=== PATIENT | female | born 1965 | race Caucasian/White ===

== ENCOUNTER 2018-06-28 14:04 | Inpatient (IN) | payer MEDICAID ==
[~2018-06-28] VITALS: Ht 170.2 cm; Wt 97.1 kg
--- NOTE | ~2018-06-28 | CON ---
[address] [address] CONSULTATION Name: MARKO MCFADDEN Room: [address] ADM IN M.R.#: [id number] Admission: 06/28/18 Attend Phys: Arie Martinez MD Discharge: Date of : 67 Report #: [id number] THIS REPORT FOR: //name// CC: Arie MCGHEE Physician staff DATE OF SERVICE: 06/29/2018 REASON FOR CONSULTATION: Pericardial effusion post-NM. PRIMARY CARE PHYSICIAN: At [facility], Michelle Mcghee, nurse practitioner. CHIEF COMPLAINT: Chest pain. HISTORY OF PRESENT ILLNESS: The patient is a 52-year-old female, who had an NM at roughly one month ago after having elective C-spine and L-spine surgery at a hospital in [place], [place]. She was at a smaller hospital apparently without PCI capability and was transferred to [facility] for her percutaneous coronary intervention. We are currently without records, but they will be requested. She presented to this hospital because she lives in the [place] area and develops continued chest pain, which she said never really went away after her surgery, but it was told that this is probably a normal response to her NM. She was evaluated with a CT scan of the chest to rule out pulmonary embolus and was found to have a pericardial effusion, described as moderate. She denies dizziness, lightheadedness and she had been hemodynamically stable with systolic pressures in the one-teens in a sinus rhythm on telemetry overnight. Her chest pain is sharp, nonradiating. It is left-sided. She did take 1 nitro without significant improvement of her symptoms. Her cardiac troponin level here is normal x 5 sets at 0.06. Her CRP is elevated at 222. Her chest x-ray shows cardiomegaly. Since her discharge, she has been weak, fatigued and having the aforementioned chest discomfort. PAST MEDICAL HISTORY: She is not a diabetic, but she does have a history of hyperlipidemia, hypertension, but really had not been on any significant medications prior to her elective surgeries. ALLERGIES: SHE HAS ALLERGIES TO ASPIRIN. SHE BREAKS OUT A RASH, [place] [address] CONSULTATION Name: MARKO MCFADDEN Room: [address] IN [facility].#: [id number] Admission: 06/28/18 Attend Phys: Arie Martinez MD Discharge: Date of : 67 Report #: [id number] HER STOMACH APPARENTLY. CURRENT MEDICATIONS: Include Plavix 75 mg daily, Lasix 40 mg daily, atorvastatin 80 mg daily, loratadine, oxycodone, zolpidem, Toprol-XL 25 mg daily, Aldactone 25 mg daily, Zanaflex, Protonix 40 mg daily and citalopram and nitroglycerin. PAST SURGICAL HISTORY: Includes neck surgery with plate and screws in 2010 and then redo surgery as above last month. She has also had knee surgeries. SOCIAL HISTORY: She was a smoker before her NM, had been done so for several years. FAMILY HISTORY: Positive for heart disease. Father of complications of an NM, but he also had other numerous medical problems following an accident from quadriplegia. REVIEW OF SYSTEMS: GASTROINTESTINAL: No complaints of nausea or vomiting. LOWER EXTREMITY: She is complaining of cramping and she did have a small hematoma at the site of her percutaneous coronary intervention. She denies any bleeding or swelling with erythema. NEUROLOGIC: Denies headaches, blurry vision, slurred speech. HEMATOLOGIC: No anemia or bleeding disorders. RENAL: No history of kidney failure. SKIN: No rashes. CARDIOVASCULAR: Positive shortness of breath, positive dyspnea on exertion, positive chest discomfort. PHYSICAL EXAMINATION: VITAL SIGNS: She is in a sinus rhythm. Blood pressure is 122/77, pulse is 98. GENERAL: This is a middle-aged woman. She is alert, no apparent distress. EYES: EOMs intact. No facial asymmetry. NECK: Supple. No jugular venous distention. CARDIOVASCULAR: Regular. I could not hear a murmur or S3. There is no rub. LUNGS: Diminished breath sounds. ABDOMEN: Soft, nontender, nondistended. EXTREMITIES: There is no peripheral edema. NEUROLOGIC: There are no focal deficits. LABORATORY DATA: Electrocardiogram shows sinus rhythm with Q waves across the anterior precordium with subtle ST elevation in V1 and V2. Hemoglobin is 10.9, white blood count is 12.7, platelet count is 684,000. INR is 1. Sodium is 133, potassium 3.8, chloride is 96, BUN is 21, creatinine is 1.3, glucose is 125. IMPRESSION: [facility] [address] [place] [address] CONSULTATION Name: MARKO MCFADDEN Room: [address] IN M.R.#: [id number] Admission: 06/28/18 Attend Phys: Arie Martinez MD Discharge: Date of : 67 Report #: [id number] 1. Ischemic cardiomyopathy. She has on my limited evaluation of her bedside echocardiogram as awyjtadl-xg-coxyap LV dysfunction with ejection fraction in the 30-35% range. There is akinesis of her apex with presence of a felun-tg-heptqjsp size apical thrombus. This was utilized with Optison contrast imaging. 2. Status post myocardial infarction. She is currently on aspirin and Plavix and I need to get records from [place] to see if she was placed a drug-eluting stent. She might have had stent thrombosis, so there is some concern that she may have had a recurrent event since her discharge from the hospital as she has had continued chest pain. We may need to survey her coronary arteries with another diagnostic cardiac catheterization and consider more aggressive antiplatelet therapy. We will check to see what kind of stent was placed and if it was a drug-eluting stent, this is a distinct possibility with her being a smoker. She may have some Plavix resistance. 3. Pericardial effusion. On limited evaluation, this appears only to be small and not responsible for her symptoms. 4. Chest pain. This could be related to ongoing angina versus a postinflammatory, post-NM inflammatory process. We will place her on anti-inflammatories and continue with aggressive antiplatelet therapy. 5. Elevated blood sugar. She may be a diabetic. I would consider treating this. 6. Hyperlipidemia. Continue with aggressive medical therapy with her atorvastatin. She is currently dosed at 80 mg daily. 7. Tobacco abuse. Cessation is recommended. 8. Right groin pain. We will check her leg with a lower extremity Doppler to make sure she does not have a vascular injury. By: [id number] Marks MD, FACC /nt
[~2018-06-28 14:04] MED LIST: CARISOPRODOL 3350 MG; DITROPAN XL5 M1; NEOMYCIN/BACIT3.5 G1; ZANTAC 150MG T150 M1; ZANTAC 150MG T150 MG PO
[2018-06-28 14:09] VITALS: BP 105/84
[2018-06-28] MEDS ORDERED: CLARITIN10 MG PO (14:18)
[2018-06-28] MEDS ORDERED: LASIX 40 MG TAB40 M2 PO (14:18)
[2018-06-28] MEDS ORDERED: LIPITOR80 MG PO (14:18)
[2018-06-28] MEDS ORDERED: CLOPIDOGREL75 MG PO (14:18)
[2018-06-28] MEDS ORDERED: OXYCODON-ACETA1 EAC1 PO (14:19)
[2018-06-28] MEDS ORDERED: AMBIEN 5 MG TABL5 M1 PO (14:19)
[2018-06-28] MEDS ORDERED: LOPRESSOR25 PO (14:19)
[2018-06-28] MEDS ORDERED: ZANAFLEX4 MG PO (14:20)
[2018-06-28] MEDS ORDERED: SPIRONOLACTONE25 M1 PO (14:20)
[2018-06-28] MEDS ORDERED: PROTONIX40 M2 PO (14:20)
[2018-06-28] MEDS ORDERED: CELEXA20 MG PO (14:21)
[2018-06-28] MEDS ORDERED: NITROGLYCERIN0.4 MG SUBLING (14:23)
[2018-06-28 14:34] LABS: ABSOLUTE EOSINOPHILS 0.1 thou/uL (0.0-0.7); ABSOLUTE LYMPHOCYTES 1.9 thou/uL (0.8-5.3); ABSOLUTE MONOCYTES 1.1 thou/uL (0.0-1.2); ABSOLUTE NEUTROPHILS 13.5 thou/uL (1.6-8.1); EOSINOPHILS 0.7 %; HEMATOCRIT 37.7 % (37.0-47.0); HEMOGLOBIN 12.6 gm/dL (12.0-15.0); LYMPHOCYTES 11.5 %; MCH 28.8 pg (26.0-34.0); MCHC 33.3 g/dL (28.0-37.0); MCV 86.4 fL (80.0-100.0); MONOCYTES 6.8 %; MPV 6.5 fl. (7.2-11.1); NUCLEATED RBCS 0 /100WBC; PLATELET COUNT* 788 thou/uL (150-400); RBC 4.37 mil/uL (4.20-5.00); RDW-CV 14.3 % (10.5-14.5); WBC 16.7 thou/uL (4.0-11.0)
[2018-06-28 14:44] LABS: APTT 34.1 Seconds (25.0-31.3); PROTIME 10.6 Seconds (9.20-11.50)
[2018-06-28 14:53] LABS: ANION GAP 12 mmol/L (7-16); BUN 15 mg/dL (7-18); CALCIUM 9.2 mg/dL (8.5-10.1); CHLORIDE 94 mmol/L (98-107); CO2 26 mmol/L (21-32); CREATININE 1.2 mg/dL (0.6-1.3); GLUCOSE 157 mg/dL (70-99); POTASSIUM 3.7 mmol/L (3.5-5.1); SODIUM 132 mmol/L (136-145); TROPONIN-I LEVEL <0.06 ng/mL (<0.06)
[2018-06-28 14:56] LABS: ALBUMIN 2.3 g/dL (3.4-5.0); ALKALINE PHOSPHATASE 179 U/L (46-116); CK-MB MASS < 0.5 ng/mL (<0.5-3.6); LIPASE 111 U/L (73-393); MAGNESIUM 1.8 mg/dL (1.8-2.4); NT-PRO BRAIN NAT PEPTIDE 2985 pg/mL (<300); SGOT 23 U/L (15-37); SGPT 34 U/L (30-65); TOTAL BILIRUBIN 0.8 mg/dL (<0.1-1.0); TOTAL PROTEIN 7.8 g/dL (6.4-8.2)
[2018-06-28 20:40] VITALS: BP 99/67
[2018-06-28 20:45] VITALS: BP 110/76
[2018-06-29] VITALS (22 sets, daily range): BP systolic 79–155; BP diastolic 43–87
[2018-06-29 01:34] LABS: HEMATOCRIT 32.7 % (37.0-47.0); HEMOGLOBIN 10.9 gm/dL (12.0-15.0); MCHC 33.4 g/dL (28.0-37.0); MCV 86.9 fL (80.0-100.0); MPV 6.6 fl. (7.2-11.1); RBC 3.76 mil/uL (4.20-5.00); RDW-CV 14.4 % (10.5-14.5); WBC 12.7 thou/uL (4.0-11.0)
[2018-06-29 01:43] LABS: CALCIUM 9.6 mg/dL (8.5-10.1); CREATININE 1.3 mg/dL (0.6-1.3); MAGNESIUM 2.2 mg/dL (1.8-2.4); POTASSIUM 3.8 mmol/L (3.5-5.1)
--- NOTE | 2018-06-29 11:54 | 2DMMODE ---
[place] [address] 2 D/M-MODE ECHOCARDIOGRAM Name: SELMASHADIAMARKO Room: [address] IN [facility]#: [id number] Admission: 06/28/18 Attend Phys: Arie Martinez, Discharge: Date of : 67 Date of Service: 06/29/18 1154 Report #: [id number] THIS REPORT FOR: //name// APPROVED REPORT Study performed: 06/29/2018 09:36:15 EXAM: Comprehensive 2D, Doppler, and color-flow Echocardiogram Patient Location: In-Patient Room #: 210 Status: routine BSA: 1.99 HR: 81 bpm BP: 123/77 mmHg Rhythm: NSR Other Information Study Quality: Good Indications Dyspnea CAD Chest Pain Echo Enhancing Agent Indication: Rule out thrombus Agent(s) / Amount(s) Used: Optison 3 cc 2D Dimensions IVSd: 9.86 (7-11mm) LVOT Diam: 19.37 (18-24mm) LVDd: 49.02 mm PWd: 11.05 (7-11mm) Ascending Ao: 28.18 (22-36mm) LVDs: 30.02 (25-40mm) Aortic Root: 29.56 mm Volumes Left Atrial Volume (Systole) LA ESV Index: 16.60 mL/m2 Aortic Valve AoV Peak Humza.: 1.19 m/s AO Peak Gr.: 5.62 mmHg LVOT Max P.94 mmHg AO Mean Gr.: 3.23 mmHg LVOT Mean P.43 mmHg LVOT Max V: 0.86 m/s AO V2 VTI: 20.71 cm LVOT Mean V: 0.55 m/[place] [address] 2 D/M-MODE ECHOCARDIOGRAM Name: MARKO MCFADDEN Room: [address] IN M.R.#: [id number] Admission: 06/28/18 Attend Phys: Arie Martinez, Discharge: Date of : 67 Date of Service: 06/29/18 1154 Report #: [id number] MARIUSZ (VTI): 1.90 cm2 LVOT V1 VTI: 13.32 cm Mitral Valve E/A Ratio: 1.25 MV Decel. Time: 147.11 ms MV E Max Humza.: 0.62 m/s MV PHT: 42.66 ms MVA (PHT): 5.16 cm2 TDI E/Lateral E': 6.20 E/Medial E': 6.89 Medial E' Humza.: 0.09 m/s Lateral E' Humza.: 0.10 m/s Pulmonary Valve PV Peak Humza.: 0.64 m/s PV Peak Gr.: 1.66 mmHg Tricuspid Valve RAP Estimate: 5.00 mmHg TR Peak Gr.: 17.47 mmHg RVSP: 22.00 mmHg PA Pressure: 22.00 mmHg Left Ventricle The left ventricle is normal size. Regional wall motion abnormalities are noted.The mid to distal anterior wall and septum are severely hypokinetic, the apex is akinetic. The distal anterior wall is thinned.Otherwise normal thickness. There is no ventricular septal defect visualized.Contrast was utilized. Left ventricular systolic function is moderate to severely decreased. Left ventricular thrombus is present.It is well dilineated in apical views, with Optison contrast.2 cm in diameter LVEF is 35%. The left ventricular diastolic function is normal. Right Ventricle The right ventricle is normal size. The right ventricular systolic function is normal. Atria The left atrium size is normal. The right atrium size is normal. Aortic Valve The aortic valve is normal in structure. No aortic regurgitation is present. There is no aortic valvular stenosis[place] [address] 2 D/M-MODE ECHOCARDIOGRAM Name: MARKO MCFADDEN Room: [address] IN M.R.#: [id number] Admission: 06/28/18 Attend Phys: Arie Martinez, Discharge: Date of : 67 Date of Service: 06/29/18 1154 Report #: [id number] The mitral valve is normal in structure. Trace mitral regurgitation. No evidence of mitral valve stenosis. Tricuspid Valve The tricuspid valve is normal in structure. Trace tricuspid regurgitation. No pulmonary hypertension. Pulmonic Valve The pulmonary valve is normal in structure. Trace pulmonic regurgitation. Great Vessels The aortic root is normal in size. IVC is normal in size and collapses >50% with inspiration. Pericardium Mild circumferential pericardial effusion. <Conclusion> Left ventricular systolic function is moderate to severely decreased. LVEF is 35%. Regional wall motion abnormalities are noted.The mid to distal anterior wall and septum are severely hypokinetic, the apex is akinetic. Left ventricular thrombus is present.It is well dilineated in apical views, with Optison contrast.2 cm in diameter There is no ventricular septal defect visualized.Contrast was utilized. Mild circumferential pericardial effusion. <ELECTRONICALLY SIGNED> By: Osman Marks MD, FACC 06/29/18 1154 1154 1154 Osman Marks MD, FACC /INF
--- NOTE | 2018-06-29 13:17 | EKG ---
[place] [address] ELECTROCARDIOGRAM REPORT Name: MARKO MCFADDEN Room: [address] ADM IN M.R.#: [id number] Admission: 06/28/18 Attend Phys: Arie Martinez MD Discharge: Date of : 67 Report #: [id number] THIS REPORT FOR: //name// [facility] ED Test Date: 2018-06-28 Test Time: 14:13:56 Pat Name: MARKO MCFADDEN Department: Room: [facility] Gender: F Melting Supervisor: : 1965 Requested By: Dheeraj Peter Order Number: [id number] MD: Osman Marks Measurements Intervals [place] Rate: 103 P: 51 AL: 137 QRS: -12 QRSD: 87 T: 100 QT: 347 QTc: 454 Interpretive Statements Sinus tachycardia Probable anterolateral infarct, recent Compared to ECG 04/08/2011 20:43:37 Myocardial infarct finding now present Sinus rhythm no longer present Electronically Signed On 06-29-2018 13:17:24 DIRECTOR OF CARDIOPULMONARY SERVICES by Osman Marks [email or web address] <ELECTRONICALLY SIGNED> By: Osman Marks MD, [facility] 06/29/18 1317 1413 1413 Osman Marks MD, [facility] /EPI
[2018-06-29 15:03] LABS: CHOLESTEROL 123 mg/dL (<200); HDL CHOLESTEROL 9 mg/dL (>40); LDL CHOLESTEROL 61 mg/dL (<100); TC:HDL 13.7 Ratio (Not establshd); TRIGLYCERIDE 267 mg/dL (<150); VLDL 53 mg/dL (<40)
[2018-06-29 15:04] LABS: SERUM ASSESSMENT Clear
[2018-06-30] VITALS: BP 99/64
[2018-06-30 04:00] VITALS: BP 90/51
[2018-06-30 04:55] LABS: CALCIUM 9.1 mg/dL (8.5-10.1); MAGNESIUM 2.2 mg/dL (1.8-2.4); POTASSIUM 4.1 mmol/L (3.5-5.1)
[2018-06-30 05:01] LABS: HEMATOCRIT 29.9 % (37.0-47.0); MCH 28.8 pg (26.0-34.0); MCHC 33.3 g/dL (28.0-37.0); MCV 86.3 fL (80.0-100.0); RBC 3.47 mil/uL (4.20-5.00); RDW-CV 14.5 % (10.5-14.5); WBC 12.6 thou/uL (4.0-11.0)
[2018-06-30 05:27] LABS: ALBUMIN 1.9 g/dL (3.4-5.0); CALCIUM 8.8 mg/dL (8.5-10.1); CREATININE 1.1 mg/dL (0.6-1.3); POTASSIUM 3.8 mmol/L (3.5-5.1); TOTAL BILIRUBIN 1.2 mg/dL (<0.1-1.0); TOTAL PROTEIN 6.9 g/dL (6.4-8.2); TROPONIN-I LEVEL 0.38 ng/mL (<0.06)
[2018-06-30 08:00] VITALS: BP 84/57
[2018-06-30 11:06] VITALS: BP 96/66
[2018-06-30 19:55] VITALS: BP 111/69
[2018-07-01] VITALS (7 sets, daily range): BP systolic 88–98; BP diastolic 54–66
[2018-07-01 05:10] LABS: HEMATOCRIT 27.8 % (37.0-47.0); HEMOGLOBIN 9.2 gm/dL (12.0-15.0); MCH 28.5 pg (26.0-34.0); MCHC 33.3 g/dL (28.0-37.0); MCV 85.7 fL (80.0-100.0); MPV 6.8 fl. (7.2-11.1); RBC 3.24 mil/uL (4.20-5.00); RDW-CV 14.6 % (10.5-14.5)
[2018-07-01 05:48] LABS: CALCIUM 8.6 mg/dL (8.5-10.1); CREATININE 0.9 mg/dL (0.6-1.3); MAGNESIUM 2.2 mg/dL (1.8-2.4); POTASSIUM 3.2 mmol/L (3.5-5.1); TOTAL BILIRUBIN 0.6 mg/dL (<0.1-1.0); TOTAL PROTEIN 6.9 g/dL (6.4-8.2)
[2018-07-01] MEDS ORDERED: ELIQUIS5 MG PO (12:00)
[2018-07-01] MEDS ORDERED: COLCHICINE0.6 MG PO (12:59)
[2018-07-01] MEDS ORDERED: BRILINTA90 MG PO (13:01)
[2018-07-01] MEDS ORDERED: CHANTIX0.5 MG PO (13:03)
[2018-07-01] MEDS ORDERED: DULCOLAX5 MG PO (13:06)
--- NOTE | 2018-07-01 13:51 | CARD ---
[address] [address] CARDIAC CATH REPORT Name: MARKO MCFADDEN Room: [address] IN M.R.#: [id number] Admission: 06/28/18 Attend Phys: Arie Martinez MD Discharge: Date of : 67 Report #: [id number] THIS REPORT FOR: //name// APPROVED REPORT Study performed: 06/29/2018 15:18:06 Patient Details The patient is a 52 year-old female Event Personnel Osman Marks Is Architect, Bethany Villalpando RN Head Of Sales Promotion, Zeynep Pike RTLedy Scrub, Orlando Blackman Banquet Steward, Satish Elena (R) Tej, Jose Daniel Ross Monitor Procedures Performed Left Heart Cath w/or w/o Coronaries [id number] [facility] [place] Place w/wo Plasty Single RCA [id number] Indication Positive stress test Risk Factors Hypercholesterolemia, Hypertension Admission/Lab Medications/Medications given during procedure Platelet Aff. Inhib., Fentanyl IV 25 mcg, Midazolam (Versed) IV 1 mg, Lidocaine Subcut 10 ml, Angiomax IV 13 mg per kg, Angiomax Drip IV 30.45 ml per hr Procedure Narrative The patient was brought electively to the Cardiac Catheterization Laboratory and was prepped and draped in a sterile manner. The right femoral was infiltrated with 2% Lidocaine subcutaneous anesthesia. A 6fr Ultimum Sheath sheath was inserted into the RFA. Coronary angiography was performed using coronary diagnostic catheters. The right coronary system was accessed and visualized with a JR4 catheter. The left coronary system was accessed and visualized with a JL4 catheter. The left ventricle was accessed and visualized with a Angled PIG catheter. Left ventricular/Aortic Valve gradient assessed via catheter pullback. The patient tolerated the procedure well and there were no complications associated with the procedure. There was no hematoma[place] Intra[place] [address] CARDIAC CATH REPORT Name: MARKO MCFADDEN Room: [address] IN M.R.#: [id number] Admission: 06/28/18 Attend Phys: Arie Martinez MD Discharge: Date of : 67 Report #: [id number] Fentanyl 25 mcg Dose: 134 mGy Contrast Type and Amount: Isovue 360 ml Diagnostic Cath Left Main 0% narrowing LAD 40 Percent proximal and mid LAD narrowing Circumflex 40 Percent proximal circumflex narrowing Right Coronary 80% tubular mid right coronary stenosis surrounding the acute margin Left Ventriculography Left Ventriculography was not performed. Hemodynamics The aortic pressure is 100/66 mmHg with a mean of 62 mmHg. The left ventricular pressure is 108/9 mmHg with a mean of mmHg. The left ventricular end diastolic pressure is 23 mmHg. PCI Technique Lesion Anticoagulation was achieved with Angiomax Drip. Percutaneous coronary intervention was performed on the mid right coronary artery. The lesion stenosis prior to intervention was 80% with CAILIN 3 flow. A 6F JR 4.0 Guide Catheter was used to engage the ostium. A IG: BMW 190cm Interventional Guidewire was used to cross the lesion. BALLOON DILATION A Balloon catheter Trek RX 2.25 X 15 was inserted and inflated up to 12.00atm for 230seconds. STENT DEPLOYMENT A drug-eluting stent Xience Kiera 2.25T13bq, 2.25x12 was inserted and inflated up to 12.00atm for 7seconds. Final angiography reveals 0 % stenosis with CAILIN 3 flow. Conclusion #1 significant coronary artery disease characterized by the following: A 40% proximal and mid LAD narrowings B 40% [place] [address] CARDIAC CATH REPORT Name: LESAMARKO Room: [address] IN [facility].#: [id number] Admission: 06/28/18 Attend Phys: Arie Martinez MD Discharge: Date of : 67 Report #: [id number] C dominant right coronary artery with 80% tubular mid vessel narrowing #2 moderate elevation of left ventricular end-diastolic pressure at rest #3 successful percutaneous coronary intervention with deployment of sequential drug-eluting stents at the site of 80% tubular mid right coronary stenosis with 0% residual narrowing and CAILIN-3 flow the distal vessel Recommendations Cardiac Risk Reduction Program Aggressive Medical Therapy Medications Administered Prasugrel Diagnostic Cath Approved by: Osman Marks MD Date/Time: 07/01/2018 13:50:27 <ELECTRONICALLY SIGNED> By: Orlando Blackman MD, FACC 07/01/18 1351 1351 1351Orlando Blackman MD, FACC /INF
--- NOTE | 2018-07-02 14:55 | EKG ---
[place] [address] ELECTROCARDIOGRAM REPORT Name: SELMASHADIAMARKO Room: [address] DIS IN M.R.#: [id number] Admission: 06/28/18 Attend Phys: Arie Martinez MD Discharge: 07/01/18 Date of : 67 Report #: [id number] THIS REPORT FOR: //name// [facility] Test Date: 2018-06-30 Test Time: 05:13:09 Pat Name: MARKO MCFADDEN Department: Room: [address] Gender: F Home Connect Lpn: [facility] : 1965 Requested By: Orlando Blackman Order Number: [id number] Abimael MD: Abel Bennett Measurements Intervals [place] Rate: 82 P: 37 [place]: 146 QRS: 4 QRSD: 97 T: 90 QT: 438 QTc: 512 Interpretive Statements Sinus rhythm Anterolateral infarct, age indeterminate Prolonged QT interval Compared to ECG 06/28/2018 14:13:56 ST (T wave) deviation now present Prolonged QT interval now present Sinus tachycardia no longer present Myocardial infarct finding still present Electronically Signed On 07-02-2018 14:55:45 CDT by Abel Bennett [email or web address] <ELECTRONICALLY SIGNED> By: Abel Bennett MD, FACC 07/02/18 1455 2 2 Abel Bennett MD, FAC /EPI
== END 2018-07-01 16:28 | disposition home or self-care (01) | DRG 246 ==
LOC: M.ERS 14:04 → M.2W 15:42 → M.TBA-ER 15:42 → M.2W 20:38
PROVIDERS: Family Medicine; Internal Medicine; Internal Medicine Cardiovascular Disease; ADMIT Internal Medicine
PROC: 027034Z Dilation of Coronary Artery, One Artery with Drug-eluting Intraluminal Device, Percutaneous Approach (ICD-10-PCS; principal; 2018-06-29)
PROC: B2111ZZ Fluoroscopy of Multiple Coronary Arteries using Low Osmolar Contrast (ICD-10-PCS; principal; 2018-06-29)
PROC: 4A023N7 Measurement of Cardiac Sampling and Pressure, Left Heart, Percutaneous Approach (ICD-10-PCS; principal; 2018-06-29)
DX: I31.9 Disease of pericardium, unspecified (principal); I50.21 Acute systolic (congestive) heart failure; E43 Unspecified severe protein-calorie malnutrition; I24.0 Acute coronary thrombosis not resulting in myocardial infarction; F12.90 Cannabis use, unspecified, uncomplicated; E78.5 Hyperlipidemia, unspecified; I25.5 Ischemic cardiomyopathy; F17.210 Nicotine dependence, cigarettes, uncomplicated; I25.10 Atherosclerotic heart disease of native coronary artery without angina pectoris; M19.91 Primary osteoarthritis, unspecified site; K21.9 Gastro-esophageal reflux disease without esophagitis; G47.00 Insomnia, unspecified; D64.9 Anemia, unspecified; E66.9 Obesity, unspecified; I95.9 Hypotension, unspecified; E87.6 Hypokalemia; I25.2 Old myocardial infarction; Z68.33 Body mass index [BMI] 33.0-33.9, adult; Z95.5 Presence of coronary angioplasty implant and graft; Z88.6 Allergy status to analgesic agent; Z88.1 Allergy status to other antibiotic agents; Z82.49 Family history of ischemic heart disease and other diseases of the circulatory system; Z82.0 Family history of epilepsy and other diseases of the nervous system

== ENCOUNTER → 2018-07-06 | Outpatient (CLI) | payer MEDICAID ==
[~2018-07-06] MED LIST changes: +AMBIEN 5 MG TABL5 M1 PO; +BRILINTA90 MG PO; +CELEXA20 MG PO; +CHANTIX0.5 MG PO; +CLARITIN10 MG PO; +CLOPIDOGREL75 MG PO; +COLCHICINE0.6 MG PO; +DULCOLAX5 MG PO; +ELIQUIS5 MG PO; +LASIX 40 MG TAB40 M2 PO; +LIPITOR80 MG PO; +LOPRESSOR25 PO; +NITROGLYCERIN0.4 MG SUBLING; +OXYCODON-ACETA1 EAC1 PO; +PROTONIX40 M2 PO; +SPIRONOLACTONE25 M1 PO; +ZANAFLEX4 MG PO
== END ==
LOC: M.ULTRA 12:50
DX: R10.30 Lower abdominal pain, unspecified (principal); I25.10 Atherosclerotic heart disease of native coronary artery without angina pectoris

== ENCOUNTER → 2018-07-14 | Outpatient (CLI) | payer MEDICAID ==
[2018-07-14 16:04] LABS: ALBUMIN 3.6 g/dL (3.4-5.0); CALCIUM 9.6 mg/dL (8.5-10.1); CREATININE 1.1 mg/dL (0.6-1.3); POTASSIUM 3.1 mmol/L (3.5-5.1); TOTAL BILIRUBIN 0.8 mg/dL (<0.1-1.0); TOTAL PROTEIN 8.2 g/dL (6.4-8.2)
== END ==
LOC: M.LAB 15:29
PROVIDERS: Registered Nurse
DX: I25.5 Ischemic cardiomyopathy (principal)

== ENCOUNTER → 2018-07-20 | Outpatient (CLI) | payer MEDICAID | LOC: M.ULTRA 12:55 | DX: R10.31 Right lower quadrant pain (principal); I25.10 Atherosclerotic heart disease of native coronary artery without angina pectoris; Z91.040 Latex allergy status; Z88.1 Allergy status to other antibiotic agents; Z88.8 Allergy status to other drugs, medicaments and biological substances ==

== ENCOUNTER → 2018-07-28 | Outpatient (CLI) | payer MEDICAID | LOC: M.LAB 14:45 | PROVIDERS: Registered Nurse | DX: I25.5 Ischemic cardiomyopathy (principal) ==

== ENCOUNTER → 2018-09-04 | Outpatient (CLI) | payer MEDICAID ==
--- NOTE | 2018-09-04 15:52 | 2DMMODE ---
[facility] [address] [place] [address] 2 D/M-MODE ECHOCARDIOGRAM Name: LESAMARKO MAGDA Room: [facility].#: [id number] Admission: 09/04/18 Attend Phys: Osman Marks, Discharge: Date of : 67 Date of Service: 09/04/18 1552 Report #: [id number] THIS REPORT FOR: //name// APPROVED REPORT Study performed: 09/04/2018 14:04:07 EXAM: Limited 2D Echocardiogram Patient Location: Out-Patient BSA: 1.94 HR: 78 bpm BP: 123/77 mmHg Other Information Study Quality: Good Indications Congestive Heart Failure Cardiomyopathy Left Ventricle The left ventricle is normal size. Regional wall motion abnormalities are noted. severe hypokinesis noted of the distal anteroseptal wall and apex There is normal left ventricular wall thickness. Left ventricular systolic function is moderate to severely decreased. LVEF is 35-40%. Right Ventricle The right ventricle is normal size. Atria The left atrium size is normal. The right atrium size is normal. Aortic Valve The aortic valve is normal in structure. Mitral Valve The mitral valve is normal in structure. Tricuspid Valve The tricuspid valve is normal in structure. Great Vessels The aortic root is normal in size. [address] [address] 2 D/M-MODE ECHOCARDIOGRAM Name: LESAMARKOALESIA MAN Room: [facility].#: [id number] Admission: 09/04/18 Attend Phys: Osman Marks, Discharge: Date of : 67 Date of Service: 09/04/181551 Report #: [id number] Pericardium There is no pericardial effusion. <Conclusion> LVEF is 35-40%. Regional wall motion abnormalities are noted. severe hypokinesis noted of the distal anteroseptal wall and apex There is no pericardial effusion. <ELECTRONICALLY SIGNED> By: Jesus Plascencia MD, FACC 09/04/181551 51 51 Jesus Plascencia MD, FACC /INF
== END ==
LOC: M.CRD 07-14 14:48
DX: I11.0 Hypertensive heart disease with heart failure (principal); I50.9 Heart failure, unspecified; I25.5 Ischemic cardiomyopathy; Z88.8 Allergy status to other drugs, medicaments and biological substances; Z88.1 Allergy status to other antibiotic agents; Z91.040 Latex allergy status

== ENCOUNTER → 2018-09-29 | Outpatient (CLI) | payer MEDICAID | LOC: M.NUC 09-20 14:00 | DX: I25.5 Ischemic cardiomyopathy (principal); I25.10 Atherosclerotic heart disease of native coronary artery without angina pectoris; I23.6 Thrombosis of atrium, auricular appendage, and ventricle as current complications following acute myocardial infarction; I11.0 Hypertensive heart disease with heart failure; I50.20 Unspecified systolic (congestive) heart failure; K21.9 Gastro-esophageal reflux disease without esophagitis; E78.00 Pure hypercholesterolemia, unspecified; Z95.818 Presence of other cardiac implants and grafts; Z88.1 Allergy status to other antibiotic agents; Z91.040 Latex allergy status; Z79.899 Other long term (current) drug therapy ==

== ENCOUNTER 2020-09-26 12:57 | Emergency (ER) | payer OTHER, MEDICAID ==
[~2020-09-26] VITALS: Ht 170.2 cm; Wt 88.5 kg
[~2020-09-26 12:57] MED LIST changes: +HYDROXYZINE HCL25 M2 PO; +METHOCARBAMOL500 M2 PO; +NORCO 7.5-3251 EACH PO; +PLAVIX 75 MG TA75 M1 PO; +XARELTO20 MG PO; +ZOLOFT 50 MG TA50 M1 PO; +ZOLPIDEM TARTRA10 MG PO
[2020-09-26] MEDS ORDERED: COZAAR 25 MG TA25 M1 PO (13:09)
[2020-09-26] MEDS ORDERED: ZETIA10 MG PO (13:09)
[2020-09-26 13:40] LABS: URINE BILIRUBIN NEGATIVE (Negative); URINE BLOOD 2+ (Negative); URINE CLARITY CLEAR; URINE COLOR YELLOW; URINE GLUCOSE-RANDOM NEGATIVE (Negative); URINE KETONES NEGATIVE (Negative); URINE LEUKOCYTES-REFLEX NEGATIVE (Negative); URINE NITRITE-REFLEX NEGATIVE (Negative); URINE PROTEIN NEGATIVE (Negative); URINE SPECIFIC GRAVITY >= 1.030 (1.005-1.030); URINE UROBILINOGEN 0.2 E.U./dl (0.2-1.0)
[2020-09-26 13:48] LABS: SQUAMOUS >10 Many /LPF (0-3)
[2020-09-26 13:49] LABS: URINE RBC 0-2 Rare /HPF (0-2); URINE WBC-REFLEX None Seen /HPF (0-5)
[2020-09-26 13:50] LABS: BACTERIA-REFLEX >30 Many /HPF (None Seen); CASTS None Seen /LPF (None Seen); CRYSTALS None Seen /LPF (None Seen); MUCUS >6 Heavy strn/LPF (None Seen)
[2020-09-26] MEDS ORDERED: FLEXERIL PO (15:19)
[2020-09-26] MEDS ORDERED: PREDNISONE 20 M20 MG PO (15:19)
[2020-09-26] MEDS ORDERED: APAP W/CODEINE1 TA2 PO (15:19)
[2020-09-26 15:53] VITALS: BP 130/85
== END 2020-09-26 15:53 | disposition home or self-care (01) ==
LOC: M.ERS 12:57
PROVIDERS: Physician Assistant
DX: M54.5 Low back pain (principal); Z91.040 Latex allergy status; Z88.6 Allergy status to analgesic agent; Z88.1 Allergy status to other antibiotic agents; Z91.018 Allergy to other foods; Z79.899 Other long term (current) drug therapy